=== PATIENT | male | born 1985 | race Caucasian/White ===

== ENCOUNTER 2017-01-17 16:14 | Emergency (ER) | payer MEDICAID ==
[~2017-01-17] VITALS: Ht 188 cm; Wt 88.4 kg
[~2017-01-17 16:14] MED LIST: ZIPR20CA2 PO
[2017-01-17 16:25] VITALS: BP 109/80
== END 2017-01-17 17:53 | disposition home or self-care (01) ==
LOC: ED 16:39
DX: L72.3 Sebaceous cyst (principal); H92.01 Otalgia, right ear; G43.909 Migraine, unspecified, not intractable, without status migrainosus; F17.200 Nicotine dependence, unspecified, uncomplicated
CPT/HCPCS: 99281